=== PATIENT | male | born 1945 ===

== ENCOUNTER 2021-05-21 02:57 | Outpatient (CLI) | payer MEDICARE, SELFPAY ==
[2021-05-21] MEDS: Albuterol HFA 18 GM 200 PUFF INH IH (09:06)
[2021-05-21] MEDS: Inhaler, Assist Device 1 EACH MC (09:07)
--- NOTE | 2021-05-22 15:45 | W.PFT ---
Date of service: 05/21/21 Time of Service: 07:58 Pulmonary Function Test Result Requesting Provider Duchene Indications: Post- COVID dyspnea Interpretation Spirometry: There is no airflow limitation. There is no significant bronchodilator response. MIP is normal, MEP is reduced. Lung Volumes: Lung volumes are normal. Diffusion Capacity: Normal diffusion Airway Pressure: Normal airways resistance. Impression Normal PFT's with the exception of a reduced MEP, which is on undetermined significance with normal lung volumes. Clinical Correlation therefore is recommended.
== END 2021-05-21 02:58 | disposition home or self-care (01) ==
LOC: RT 02:57
PROVIDERS: PCP Nurse Practitioner Family; Visit Provider Student in an Organized Health Care Education/Training Program
DX: R06.00 Dyspnea, unspecified (principal); U09.9 Post COVID-19 condition, unspecified; R94.2 Abnormal results of pulmonary function studies
CPT/HCPCS: 94060; 94726; 94729